=== PATIENT | female | born 1945 | race Caucasian/White ===

== ENCOUNTER 2019-09-21 06:18 | Day surgery (SDC) | payer OTHER, MEDICARE ==
[2019-09-19 16:45] VITALS: BMI 20.1
[2019-09-21] MEDS ORDERED: oxyCODONE HCL 10 MG SUSTAINED ACTING TABLET PO STA (06:39)
[2019-09-21] MEDS ORDERED: methylPREDNISolone ACET (DEPO) 40 MG/1 ML VIAL ONE (07:04)
[2019-09-21] MEDS ORDERED: LIDOCAINE 1%/EPI 1:100000 (20 ML MULTI DOSE VIAL) ONE (07:05)
[2019-09-21] MEDS ORDERED: GUM MASTIC/STORAX/MSAL/ALCOHOL 1 DRP DROPSBTL MC ONE (07:05)
[2019-09-21] MEDS ORDERED: BUPIVACAINE HCL/PF 0.5% (5 MG/ML) 30 ML VIAL IJ ONE (07:15)
[2019-09-21] MEDS ORDERED: MIDAZOLAM HCL 2 MG/2 ML SINGLE DOSE VIAL ONE ×2 (07:15→07:36)
[2019-09-21] MEDS ORDERED: SUCCINYLCHOLINE CHLORIDE 200 MG/10 ML SYRINGE ONE (07:36)
[2019-09-21] MEDS ORDERED: ceFAZolin SODIUM 1 GM VIAL ONE (07:36)
[2019-09-21] MEDS ORDERED: BUPIVACAINE HCL/PF 0.5% (5MG/ML) 10 ML VIAL ONE (07:42)
--- NOTE | 2019-09-21 08:23 | HP ---
History & Physical Update - History History: No Change - Physical Physical: No Change - Assessment Assessment: No Change - Plan Plan: No Change (Initial H&P completed on 09/19/[address] Char Rodríguez. It is complete and accurate/UTD. No new complaints or medications. Here today for elective L3/4 laminectomy.)
[2019-09-21] MEDS ORDERED: LIDOCAINE 1%/EPI 1:100000 (20 ML MULTI DOSE VIAL) INF ONE (09:05)
[2019-09-21] MEDS ORDERED: methylPREDNISolone ACET (DEPO) 40 MG/1 ML VIAL IM ONE (10:08)
--- NOTE | 2019-09-21 10:33 | SURG ---
Surgery Live Out Nanny Note Live Out Nanny: Maciej Moreland PA-C Date of Service: 09/21/19 Diagnosis: L3/4 stenosis, HNP, RLE radiculopathy Procedure: L3/4 laminectomy (bilateral, with right discectomy I was present for the entirety of the operative procedure. For further detail, please refer to operative report. Visit type - Case Type Case Type: Scheduled - New patient This patient is new to me today: Yes Date on this admission: 09/21/19
--- NOTE | 2019-09-21 10:33 | OP ---
Operative Note - Note: Operative Date: 09/21/19 Pre-Operative Diagnosis: L3/4 stenosis, HNP, RLE radiculopathy Operation: L3/4 laminectomy (bilateral) with right discectomy Post-Operative Diagnosis: Same as Pre-op Surgeon: Alo Cazares Sales Support Rep: Maciej Moreland Anesthesiologist/CLAIMS ADJUDICATOR: Pedro Wilhelm Anesthesia: Spinal Specimens Removed: L3/4 disc Estimated Blood Loss (mls): 10 Fluid Volume Replaced (mls): 800 Operative Report Dictated: Yes
[2019-09-21 10:39] VITALS: TEMP 97.7
[2019-09-21] MEDS ORDERED: PROMETHAZINE HCL 25 MG/1 ML VIAL IVPUSH PRN (10:59)
[2019-09-21] MEDS ORDERED: ONDANSETRON 4 MG/2 ML VIAL IVPUSH PRN (10:59)
[2019-09-21] MEDS ORDERED: oxyCODONE HCL 5 MG TABLET PO PRN ×2 (10:59)
[2019-09-21] MEDS ORDERED: ACETAMINOPHEN 325 MG TABLET (FP) PO SCH (12:00)
--- NOTE | 2019-09-21 12:35 | OP ---
DATE OF OPERATION: 09/21/2019 PREOPERATIVE DIAGNOSIS: Spinal stenosis L3-4. POSTOPERATIVE DIAGNOSIS: Spinal stenosis L3-4. PROCEDURE PERFORMED: Laminectomy L3-4. SURGEON: Alo Cazares MD TOW MOTOR DRIVER: KWAN Kamara ESTIMATED BLOOD LOSS: 50 mL. INTRAVENOUS FLUIDS: Per anesthesia. ANESTHESIA: Spinal/TLIP. COMPLICATIONS: There were none. DISPOSITION: Patient brought to the PACU in stable condition. INDICATIONS FOR SURGERY: Patient is a 74-year-old female who has been suffering from pain from her back down her right leg. X-rays and MRI were completed, which noted that she had spinal stenosis at L3-4. She had gone through an exhaustive course of treatment for this, which included medications, physical therapy as well as injections. Unfortunately, her pain continued to persist despite all this. At this point, risks, benefits, alternatives were discussed, and the patient consented to surgery. DESCRIPTION OF PROCEDURE: The patient was brought to the OR by the anesthesia staff. After appropriate patient identification was performed, spinal anesthesia was given. A TLIP block was also given. Patient was able to position herself prone onto the OR table with all areas and bony prominences well padded at this time. Two needles were placed into the back to oumou off the L3-4 segments. X-ray was taken to confirm this was correct. Needle was removed, and 10 mL of lidocaine with epinephrine was injected into her back. At this time, her back was prepped and draped in a sterile manner. At this point, a time-out was completed. An incision was made from the top of L3 down to the bottom of L4. Dissection was carried down to the fascia. Fascia was then split at this time, and appropriate retractors were then placed in. A spinal needle was placed onto the L3 lamina to oumou off the L3-4 segments. X-ray was taken to confirm this was correct. Needle was removed, and the interspinous ligament at L3-4 was removed. Portions of the L3-L4 spinous process were removed. Portions of the lamina were removed. The flavum was identified. It was removed. The nerve root was mobilized medially. A disk herniation was noted. It was removed. A complete decompression was performed such that by the end of the procedure the L4 nerve root appeared to be well decompressed. All bleeding was well controlled at this time. Steroid was placed over the nerve root. FloSeal was placed over that. The fascia was closed with a No. 1 Vicryl suture. The subcutaneous tissue was closed with 2-0 Vicryl suture. Skin was closed with 3-0 Monocryl suture. Dermabond was applied. Steri-Strips were applied. A sterile dressing was applied. Patient was placed supine on the OR bed, brought to the PACU in stable condition. Josiah RODRIGUEZ/[id number]
[2019-09-21 15:12] VITALS: BP 120/56; PULSE 66
--- NOTE | 2019-09-25 15:22 | PATH ---
Surgical Pathology Report Patient Name: NATALIYA BRAND [facility]. Rec. #: [id number] /Age/Gender: 1945 (Age: 74) / F Account: [id number] Location: [facility] Taken: 09/21/2019 Received: 09/21/2019 Reported: 09/25/2019 Physicians: Alo Cazares M.D. Specimen(s) Received L3-4 DISC Clinical History Spinal stenosis Final Diagnosis L3-4 DISC, DISCECTOMY: PORTIONS OF CARTILAGINOUS TISSUE WITH FOCAL DEGENERATIVE CHANGE. Electronically Signed Kristnia Harmon M.D. Gross Description Received in formalin labeled "L3-4 disc," is a 1.2 x 0.8 x 0.3 cm aggregate of nix fragments of fibrocartilaginous tissue. The specimen is submitted in toto in one cassette. /09/22/2019 saudi09/22/2019
== END 2019-09-21 13:40 | disposition home or self-care (01) ==
LOC: FASU 06:18
PROVIDERS: ATTEND Orthopaedic Surgery Orthopaedic Surgery of the Spine
PROC: 01NB0ZZ Release Lumbar Nerve, Open Approach (ICD-10-PCS; principal; 2019-09-21 09:17)
DX: M48.061 Spinal stenosis, lumbar region without neurogenic claudication (principal)
CPT/HCPCS: 72100-TC-FY; 76000-TC-FY; 88304-TC; 94760

== ENCOUNTER 2021-06-04 09:00 | Day surgery (SDC) | payer OTHER, MEDICARE ==
[2021-06-04] MEDS: TROPICAMIDE 1% OPHTH SOLN 15 ML BOTTLE ONE ×3 (09:30→09:40)
[2021-06-04] MEDS: CYCLOPENTOLATE 2% OPHTH SOLN 2 ML BOTTLE ONE ×3 (09:30→09:40)
[2021-06-04] MEDS: CIPROFLOXACIN 0.3% EYE DROPS 5 ML BOTTLE ONE ×3 (09:30→09:40)
[2021-06-04] MEDS: PHENYLEPHRINE 2.5% OPHTH SOLN 15 ML BOTTLE ONE ×3 (09:30→09:40)
[2021-06-04 09:39] VITALS: TEMP 97.8
[2021-06-04] MEDS ORDERED: BSS (NA/CA/MG/K) BALANCED SALT SOLUTION OPHTH SOLN 15 ML BOTTLE ONE (11:18)
[2021-06-04] MEDS ORDERED: LIDOCAINE 1% P/F 10 MG/ML VIAL ONE (11:18)
[2021-06-04] MEDS ORDERED: TETRACAINE 0.5% OPHTH SOLN 2 ML BOTTLE ONE (11:18)
[2021-06-04] MEDS ORDERED: NEO/POLYMYX B SULF/DEXAMETH OPHTHALMIC 5ML BOTTLE ONE (11:19)
[2021-06-04] MEDS ORDERED: CARBACHOL 0.01% INTRA-OCULAR 1.5 ML VIAL ONE (11:19)
[2021-06-04] MEDS ORDERED: MIDAZOLAM HCL 2 MG/2 ML SINGLE DOSE VIAL ONE (11:32)
[2021-06-04 13:48] VITALS: BP 129/51; PULSE 64
== END 2021-06-04 12:55 | disposition home or self-care (01) ==
LOC: FASU 09:00
PROVIDERS: ATTEND Ophthalmology
PROC: 08RJ3JZ Replacement of Right Lens with Synthetic Substitute, Percutaneous Approach (ICD-10-PCS; principal; 2021-06-04 11:34)
DX: H26.8 Other specified cataract (principal)

== ENCOUNTER 2021-07-09 08:26 | Day surgery (SDC) | payer OTHER, MEDICARE ==
[2021-07-09 08:55] VITALS: TEMP 97.8
[2021-07-09] MEDS: PHENYLEPHRINE 2.5% OPHTH SOLN 15 ML BOTTLE ONE ×3 (08:55→09:07)
[2021-07-09] MEDS: TROPICAMIDE 1% OPHTH SOLN 15 ML BOTTLE ONE ×3 (08:55→09:05)
[2021-07-09] MEDS: CYCLOPENTOLATE 2% OPHTH SOLN 2 ML BOTTLE ONE ×3 (08:55→09:06)
[2021-07-09] MEDS: CIPROFLOXACIN 0.3% EYE DROPS 5 ML BOTTLE ONE ×3 (08:55→09:05)
[2021-07-09] MEDS ORDERED: TETRACAINE 0.5% OPHTH SOLN 2 ML BOTTLE ONE (09:06)
[2021-07-09] MEDS ORDERED: CARBACHOL 0.01% INTRA-OCULAR 1.5 ML VIAL ONE (09:06)
[2021-07-09] MEDS ORDERED: NEO/POLYMYX B SULF/DEXAMETH OPHTHALMIC 5ML BOTTLE ONE (09:06)
[2021-07-09] MEDS ORDERED: LIDOCAINE 1% P/F 10 MG/ML VIAL ONE (09:06)
[2021-07-09] MEDS ORDERED: BSS (NA/CA/MG/K) BALANCED SALT SOLUTION OPHTH SOLN 15 ML BOTTLE ONE (09:06)
[2021-07-09] MEDS ORDERED: MIDAZOLAM HCL 2 MG/2 ML SINGLE DOSE VIAL ONE (09:47)
[2021-07-09 11:05] VITALS: BP 150/71; PULSE 58
== END 2021-07-09 11:10 | disposition home or self-care (01) ==
LOC: FASU 08:26
PROVIDERS: ATTEND Ophthalmology
PROC: 08RK3JZ Replacement of Left Lens with Synthetic Substitute, Percutaneous Approach (ICD-10-PCS; principal; 2021-07-09 10:18)
DX: H26.8 Other specified cataract (principal)

== ENCOUNTER 2022-12-23 10:27 | Emergency (ER) | payer OTHER ==
[2022-12-23 11:21] VITALS: RESP 18
[2022-12-23 12:03] LABS: HEMATOCRIT 40.1 % (32.4-45.2); HEMOGLOBIN 13.3 G/dL (10.7-15.3); MCH 31.4 pg (25.7-33.7); MCHC 33.2 g/dl (32.0-36.0); MEAN CELL VOLUME 94.3 fl (80-96); MEAN PLT VOLUME 9.1 fl (7.5-11.1); PLATELET COUNT 293.9 10^3/uL (134-434); RBC 4.25 10^6/uL (3.60-5.2); WHITE BLOOD COUNT 7.2 10^3/uL (4.0-10.8)
[2022-12-23 12:11] LABS: ALBUMIN 4.6 g/dl (3.4-5.0); BILIRUBIN,TOTAL 0.9 mg/dl (0.2-1); CALCIUM 9.9 mg/dl (8.5-10); CREATININE 0.5 mg/dl (0.55-1.3); TOT PROT 7.8 g/dl (6.4-8.2)
[2022-12-23 13:22] LABS: PLATELET ESTIMATE ADEQUATE
[2022-12-23 14:35] VITALS: BP 156/77; PULSE 70; TEMP 98.8
== END 2022-12-23 14:42 | disposition home or self-care (01) ==
LOC: FER 10:27
DX: R74.01 Elevation of levels of liver transaminase levels (principal)
CPT/HCPCS: 36415; 76705-TC; 80053; 85027; 86705; 86708; 86709; 87517; 99284-25